=== PATIENT | male | born 1955 | race Caucasian/White ===

== ENCOUNTER 2016-12-13 13:55 | Observation (INO) | payer SELFPAY ==
[~2016-12-13] VITALS: Ht 175.3 cm; Wt 60.0 kg
[2016-12-13 14:00] VITALS: BP_SYST 105; BP_SYST 114; BP_SYST 93; BP_DIAS 54; BP_DIAS 63; BP_DIAS 69; PULSE 56; RESP 20; TEMP 98.3; O2SAT 97
[2016-12-13] MEDS ORDERED: SODIUM CHLOR 0.9% 1000 ML INJ 1,000 ML IV SCH (14:06)
[2016-12-13] MEDS ORDERED: ONDANSETRON HCL 4 MG/2 ML VIAL IV PUSH ONE (14:15)
--- NOTE | 2016-12-13 14:30 | PD ---
HPI Chief Complaint: Syncope/Near-Syncope Time Seen by Provider: 14:23 Travel History International Travel<30 days: No Contact w/Intl Traveler<30days: No Traveled to known affect area: No History of Present Illness HPI 61-year-old male for evaluation of presyncope. Patient came here by ED for evaluation of this. Per patient he was at work today he was bending down and he felt dizzy and nauseous. Per patient he had to sit down and he felt a little bit better but he still felt dizzy. Per patient he went to fix a desk at the office and he been down and he felt that someone was pushing him on the butt and he fell into the ground. Per patient this didn't actually happened and some vomiting x-ray portion. Patient states that he almost lost consciousness but didn't actually. He did hit his head but denies again no consciousness loss. Per patient he did felt that he was having no vision at the time. Patient denies any chest pain or shortness of breath at this time. Per patient he had some left-sided chest discomfort that lasted for about 20 minutes and went away on its own yesterday night. He attributes this to his heartburn. Patient has had testing before for chest pain, resolving negative. Per patient he had no shortness of breath but the pain did radiate to the left arm. He did not take anything for it. He has no allergies to medication. Per patient currently he has no pain but he does have a spinning sensation to his legs. He still states that he feels dizzy and by PCP means that he feels like he is lightheaded but not spinning. PFSH Past Medical History Heart Rhythm Problems: No Cardiac Catheterization: No Cardiovascular Problems: No High Cholesterol: No Congestive Heart Failure: No Diabetes: No Past Surgical History Coronary Artery Bypass Graft: No Social History Alcohol Use: Yes (OCC) Tobacco Use: Yes (1 PPD) Substance Use: No Allergies-Medications (Allergen,Severity, Reaction): Coded Allergies: No Known Allergies (Unverified , 12/13/16) Reported Meds & Prescriptions Reported Meds & Active Scripts Active No Active Prescriptions or Reported Medications Review of Systems General / Constitutional: No: Fever, Chills, Weight Gain, Weight Loss, Other Eyes: Positive: Blurred Vision, No: Diploplia, Photophobia, Drainage, Redness , Foreign Body Sensation, Pain, Tearing, Blind Spots, Visual changes, Blindness , Other HENT: Positive: Vertigo, Lightheadedness, No: Headaches, Sore Throat, Rhinitis , Rhinorrhea, Congestion, Nosebleed, Neck Stiffness, Neck Pain, Masses, Gingival Bleeding, Dental Difficulties, Ear Discharge, Earache, Other Cardiovascular: Positive: Chest Pain or Discomfort, No: Palpitations, Irregular Rhythm, Tachycardia, Diaphoresis, Syncope, Dyspnea on exertion, Varicosities, Edema, Cyanosis, Varicosities, Phlebitis, Claudication, Other Respiratory: No: Cough, Shortness of Breath, Wheezing, Sneezing, Orthopnea, Hemoptysis, Stridor, Night Sweats, Pleuritic Pain, Other Gastrointestinal: No: Nausea, Vomiting, Diarrhea, Abdominal Pain, Hematemesis, Hematochezia, Constipation, Changes in Bowel Habits, Indigestion, Dysphagia, Loss of Appetite, Other Genitourinary: No: Urgency, Frequency, Dysuria, Nocturia, Hematuria, Decreased Urinary Output, Oliguria, Hesitancy, Dribbling, Incontinence, Pelvic Pain, Flank Pain, Dyspareunia, Discharge, Dysmenorrhea, Menorrhagia, Metorrhagia, Vaginal Bleeding, Other Musculoskeletal: No: Myalgias, Arthralgias, Limited ROM, Weakness, Cramping, Edema, Pain, Atrophy, Other Skin: No Rash, No Itching, No Dryness, No Lumps, No Hives, No Change in Pigmentation, No Change in nails, No Alopecia, No Lesions, No Breast Lumps, No Breast Tenderness, No Breast Swelling, No Other Neurologic: Positive: Weakness, Dizziness, Syncope, Paresthesia, No: Focal Abnormalities, Coordination Problem, Tremor, Ataxia, Headache, Change in Mentation, Slurred Speech, Incontinence, Seizures, Sensory Disturbance, Other Psychiatric: No: Anxiety, Depression, Suicidal Ideations, Disorder of Thought, Mood Disorder, Substance Abuse, Homicidal Ideation, Other Endocrine: No: Heat Intolerance, Cold Intolerance, Polyuria, Polydipsia, Other Hematologic/Lymphatic: No: Easy Bruising, Lymph Node Enlargement, Other Physical Exam Narrative GENERAL: SKIN: Warm and dry. HEAD: Atraumatic. Normocephalic. EYES: Pupils equal and round. No scleral icterus. No injection or drainage. ENT: No nasal bleeding or discharge. Mucous membranes pink and moist. Tongue is midline. No uvula deviation. TMs are clear with no sign of infection or perforation bilaterally. NECK: Trachea midline. No JVD. CARDIOVASCULAR: Regular rate and rhythm. No murmurs, S3, S4. RESPIRATORY: No accessory muscle use. Clear to auscultation. Breath sounds equal bilaterally. GASTROINTESTINAL: Abdomen soft, non-tender, nondistended. Hepatic and splenic margins not palpable. MUSCULOSKELETAL: Extremities without clubbing, cyanosis, or edema. No obvious deformities. Full range of motion of the upper and lower extremities with no pain. 2+ pulses bilaterally. NEUROLOGICAL: Awake and alert. No obvious cranial nerve deficits. Motor grossly within normal limits. Five out of 5 muscle strength in the arms and legs. Normal speech. PSYCHIATRIC: Appropriate mood and affect; insight and judgment normal. Data Data Last Documented VS Vital Signs Date Time Temp Pulse Resp B/P Pulse Ox O2 Delivery O2 Flow Rate FiO2 12/13/16 14:00 97 Room Air 12/13/16 14:00 98.3 56 20 114/63 Orders Electrocardiogram (12/13/16 ) Complete Blood Count With Diff (12/13/16 14:06) Basic Metabolic Panel (Bmp) (12/13/16 14:06) Ckmb (Isoenzyme) Profile (12/13/16 14:06) Troponin I (12/13/16 14:06) Prothrombin Time / Inr (Pt) (12/13/16 14:06) Act Partial Throm Time (Ptt) (12/13/16 14:06) Magnesium (Mg) (12/13/16 14:06) Thyroid Stimulating Hormone (12/13/16 14:06) Chest, Single Ap (12/13/16 14:06) Ct Brain W/O Iv Contrast(Rout) (12/13/16 14:06) Iv Access Insert/Monitor (12/13/16 14:06) Ecg Monitoring (12/13/16 14:06) Oximetry (12/13/16 14:06) Orthostatic Vital Signs (12/13/16 14:06) Sodium Chlor 0.9% 1000 Ml Inj (Ns 1000 M (12/13/16 14:06) Ondansetron Inj (Zofran Inj) (12/13/16 14:15) Meclizine (Antivert) (12/13/16 15:30) Admit Order (Ed Use Only) (12/13/16 15:53) Labs Laboratory Tests Test 12/13/16 14:10 White Blood Count 5.0 TH/MM3 Red Blood Count 4.43 MIL/MM3 Hemoglobin 14.4 GM/DL Hematocrit 42.0 % Mean Corpuscular Volume 94.7 FL Mean Corpuscular Hemoglobin 32.5 PG Mean Corpuscular Hemoglobin 34.3 % Concent Red Cell Distribution Width 12.4 % Platelet Count 188 TH/MM3 Mean Platelet Volume 8.9 FL Neutrophils (%) (Auto) 50.4 % Lymphocytes (%) (Auto) 32.6 % Monocytes (%) (Auto) 12.0 % Eosinophils (%) (Auto) 3.9 % Basophils (%) (Auto) 1.1 % Neutrophils # (Auto) 2.5 TH/MM3 Lymphocytes # (Auto) 1.6 TH/MM3 Monocytes # (Auto) 0.6 TH/MM3 Eosinophils # (Auto) 0.2 TH/MM3 Basophils # (Auto) 0.1 TH/MM3 CBC Comment DIFF FINAL Differential Comment Prothrombin Time 11.4 SEC Prothromb Time International 1.0 RATIO Ratio Activated Partial 27.1 SEC Thromboplast Time Sodium Level 138 MEQ/L Potassium Level 4.5 MEQ/L Chloride Level 106 MEQ/L Carbon Dioxide Level 26.2 MEQ/L Anion Gap 6 MEQ/L Blood Urea Nitrogen 15 MG/DL Creatinine 1.00 MG/DL Estimat Glomerular Filtration 76 ML/MIN Rate Random Glucose 88 MG/DL Calcium Level 9.3 MG/DL Magnesium Level 2.3 MG/DL Total Creatine Kinase 62 U/L Troponin I LESS THAN 0.02 NG/ML Thyroid Stimulating Hormone 0.883 uIU/ML [address] [place] [address] Medical Decision Making Medical Screen Exam Complete: Yes Emergency Medical Condition: Yes Medical Record Reviewed: Yes Interpretation(s) Last Impressions Head CT 12/13/16 1406 Signed Impressions: Service Date/Time: Tuesday, December 13, 2016 14:34 - CONCLUSION: Normal examination. Taqueria Colon MD CBC & BMP Diagram 12/13/16 14:10 Chest x-ray negative. Troponin and CK be negative. EKG show sinus rhythm with no sign of acute ischemia or arrhythmia. Differential Diagnosis Vertigo versus lightheadedness versus presents syncope versus syncope versus chest pain versus ACS versus CVA versus TIA Narrative Course 61-year-old male that presents to the ED for evaluation of presyncope. Patient was properly examined and was found to have signs and symptoms consistent appears to be presyncope. Patient also complained of some chest discomfort yesterday. Patient is an avid smoker. At this time I do recommend labs and imaging workup for CVA as well as ACS. He is agreeable with this. Patient was given IV fluids at this time. Labs and imaging showed no sign of acute disease. Patient still feels dizzy. Patient is symptomatic when he stands up. Patient doesn't have orthostatic hypotension but he was found to be somewhat hypotensive initially. Because of patient's age and symptoms to do recommend admission for further workup of the dizziness. My attending Dr. Jeronimo agrees with plan. Patient agrees with plan. WINSOME was paged and Dr Traore agrees to admission. Diagnosis Primary Impression: Pre-syncope Additional Impression: Tobacco abuse Admitting Information Admitting Physician Requests: Observation Scripts No Active Prescriptions or Reported Meds Gume Fulton Dec 13, 2016 14:30
[2016-12-13 14:35] LABS: AUTOMATED NEUTROPHIL # 2.5 TH/MM3 (1.8-7.7); BASOPHIL # 0.1 TH/MM3 (0-0.2); BASOPHIL % 1.1 % (0.0-2.0); EOSINOPHIL # 0.2 TH/MM3 (0-0.4); EOSINOPHIL % 3.9 % (0.0-4.0); HEMO FLAGS DIFF FINAL; LYMPH % 32.6 % (9.0-44.0); LYMPHOCYTE # 1.6 TH/MM3 (1.0-4.8); MEAN CELL VOLUME 94.7 FL (80.0-100.0); MEAN CORPUSCULAR HEMOGLOBIN 32.5 PG (27.0-34.0); MEAN CORPUSCULAR HGB CONC 34.3 % (32.0-36.0); NEUT % 50.4 % (16.0-70.0); PLATELET COUNT 188 TH/MM3 (150-450); RED BLOOD COUNT 4.43 MIL/MM3 (4.50-5.90); RED CELL DISTRIBUTION WIDTH 12.4 % (11.6-17.2)
--- NOTE | 2016-12-13 14:50 | RADRPT ---
EXAM DATE/TIME: 12/13/2016 14:34 [facility] COMPARISON: No previous studies available for comparison. INDICATIONS : Syncope. RADIATION DOSE: 56.35 CTDIvol (mGy) MEDICAL HISTORY : Spontaneous pneumothorax. SURGICAL HISTORY : None. ENCOUNTER: Initial ACUITY: 1 day PAIN SCALE: 0/10 LOCATION: cranial TECHNIQUE: Multiple contiguous axial images were obtained of the head. Using automated exposure control and adj ustment of the mA and/or kV according to patient size, radiation dose was kept as low as reasonably a chievable to obtain optimal diagnostic quality images. FINDINGS: CEREBRUM: The ventricles are normal for age. No evidence of midline shift, mass lesion, hemorrhage or acute in farction. No extra-axial fluid collections are seen. POSTERIOR FOSSA: The cerebellum and brainstem are intact. The 4th ventricle is midline. The cerebellopontine angle i s unremarkable. EXTRACRANIAL: The visualized portion of the orbits is intact. SKULL: The calvaria is intact. No evidence of skull fracture. CONCLUSION: Normal examination. Taqueria Colon MD on December 13, 2016 at 14:48 Board Certified Radiologist. This report was verified electronically.
[2016-12-13 14:52] LABS: ANION GAP 6 MEQ/L (5-15); BICARBONATE 26.2 MEQ/L (21.0-32.0); BLOOD UREA NITROGEN 15 MG/DL (7-18); CHLORIDE 106 MEQ/L (98-107); GLOMERULAR FILTRATION RATE 76 ML/MIN (>89); MAGNESIUM 2.3 MG/DL (1.5-2.5); POTASSIUM 4.5 MEQ/L (3.5-5.1); SODIUM (NA) 138 MEQ/L (136-145)
[2016-12-13 14:54] LABS: APTT (PATIENT) 27.1 SEC (24.3-30.1); PROTHROMBIN TIME - PATIENT 11.4 SEC (9.8-11.6)
[2016-12-13 15:08] LABS: CREATINE KINASE 62 U/L (39-308)
--- NOTE | 2016-12-13 15:14 | RADRPT ---
EXAM DATE/TIME: 12/13/2016 14:37 [facility] COMPARISON: CHEST SINGLE AP, May 03, 2015, 18:52. INDICATIONS : Vertigo, syncope, chest discomfort, smoker MEDICAL HISTORY : None. SURGICAL HISTORY : None. ENCOUNTER: Initial ACUITY: 1 day PAIN SCORE: 1/10 LOCATION: Bilateral chest FINDINGS: Granulomas present in the right upper lobe. Nipple shadows are seen in both bases bila terally. Lungs are clear. Heart and pulmonary vascularity are normal. Portions of the bony skeleton visualize d are unremarkable. CONCLUSION: Negative chest for acute disease. Michael Bronson MD FACR on December 13, 2016 at 15:05 Board Certified Radiologist. This report was verified electronically.
[2016-12-13] MEDS ORDERED: MECLIZINE HCL 25 MG TAB PO ONE (15:30)
[2016-12-13 15:56] VITALS: BP 120/63; PULSE 66; RESP 20; O2SAT 97
--- NOTE | 2016-12-13 16:11 | HHI.HP ---
[facility] No Primary Care Physician Admission Diagnosis presyncope Diagnoses: (1) Pre-syncope Diagnosis: Principal Chief Complaint: ' I almost passed out '. Travel History International Travel<30 Days: No Contact w/Intl Traveler <30 Da: No Traveled to Known Affected Are: No History of Present Illness patient is a 61 y/o male with no significant past medical history who presented to ER with presyncope. he says that earlier today, when he was at work, when he bent over he suddenly felt dizzy along with some blurred vision. he says that it initially got better but again it felt that ' something was pushing him from the back ' and then he fell on the ground. he didn't pass out and there's no history of head trauma. he denies any chest pain or sob prior to the incident although he had some nausea and he vomited once on his way to ER. he doesn't recall any similar episodes in the past. Review of Systems Constitutional: COMPLAINS OF: Dizziness, DENIES: Fever, Weight loss, Chills, Night Sweats Eyes: DENIES: Blurred vision, Diplopia, Vision loss, Double Vision Ears, nose, mouth, throat: DENIES: Tinnitus, Vertigo, Throat pain, Epistaxis Respiratory: DENIES: Apneas, Cough, Snoring, Wheezing, Hemoptysis, Sputum production, Shortness of breath Cardiovascular: DENIES: Chest pain, Palpitations, Syncope, Dyspnea on Exertion , PND, Lower Extremity Edema, Orthopnea, Claudication Gastrointestinal: COMPLAINS OF: Nausea, Vomiting, DENIES: Abdominal pain, Black stools, Bloody stools, Constipation, Diarrhea, Difficulty Swallowing, Anorexia Genitourinary: DENIES: Urinary frequency, Urgency, Hematuria, Dysuria Musculoskeletal: DENIES: Joint pain, Muscle aches, Stiffness, Joint Swelling Integumentary: DENIES: Rash Neurologic: DENIES: Abnormal gait, Headache, Localized weakness, Paresthesias, Seizures, Speech Problems, Tremor, Poor Balance Psychiatric: DENIES: Anxiety, Confusion, Mood changes, Depression, Hallucinations, Agitation, Suicidal Ideation, Homicidal Ideation, Delusions Past Family Social History Past Medical History not significant. Past Surgical History none reported. Reported Medications none. Allergies: Coded Allergies: No Known Allergies (Unverified , 12/13/16) Active Ordered Medications Current Medications Sodium Chloride (NS 1000 ml Inj) 1,000 ml @ 1,000 mls/hr Q1H IV Last administered on 12/13/16 14:30; Start 12/13/16 at 14:06; Stop 12/13/16 at 15:05 ; Status DC Ondansetron HCl (Zofran Inj) 4 mg ONCE ONCE IV PUSH Last administered on 14:30; Start 12/13/16 at 14:15; Stop 12/13/16 at 14:16; Status DC Meclizine HCl (Antivert) 25 mg ONCE ONCE PO Last administered on 12/13/16 15: 56; Start 12/13/16 at 15:30; Stop 12/13/16 at 15:31; Status DC Family History lung cancer in father. Social History smokes a pack a day- drinks occasionally. Physical Exam Vital Signs Vital Signs Date Time Temp Pulse Resp B/P Pulse Ox O2 Delivery O2 Flow Rate FiO2 12/13/16 15:56 66 20 120/63 97 Room Air 12/13/16 14:00 97 Room Air 12/13/16 14:00 98.3 56 20 114/63 97 12/13/16 14:00 49 20 93/54 56 20 114/63 62 20 105/69 Physical Exam GENERAL: This is a well-nourished, well-developed patient, in no apparent distress. SKIN: No rashes, ecchymoses or lesions. Cool and dry. HEAD: Atraumatic. Normocephalic. No temporal or scalp tenderness. EYES: Pupils equal round and reactive. Extraocular motions intact. No scleral icterus. No injection or drainage. ENT: Nose without bleeding, purulent drainage or septal hematoma. Throat without erythema, tonsillar hypertrophy or exudate. Uvula midline. Airway patent. NECK: Trachea midline. No JVD or lymphadenopathy. Supple, nontender, no meningeal signs. CARDIOVASCULAR: Regular rate and rhythm without murmurs, gallops, or rubs. RESPIRATORY: Clear to auscultation. Breath sounds equal bilaterally. No wheezes , rales, or rhonchi. GASTROINTESTINAL: Abdomen soft, non-tender, nondistended. No hepato-splenomegaly , or palpable masses. No guarding. MUSCULOSKELETAL: Extremities without clubbing, cyanosis, or edema. No joint tenderness, effusion, or edema noted. No calf tenderness. Negative Homans sign bilaterally. NEUROLOGICAL: Awake and alert. Cranial nerves II through XII intact. Motor and sensory grossly within normal limits. Five out of 5 muscle strength in all muscle groups. Normal speech. Laboratory Laboratory Tests Test 12/13/16 14:10 White Blood Count 5.0 Red Blood Count 4.43 Hemoglobin 14.4 Hematocrit 42.0 Mean Corpuscular Volume 94.7 Mean Corpuscular Hemoglobin 32.5 Mean Corpuscular Hemoglobin 34.3 Concent Red Cell Distribution Width 12.4 Platelet Count 188 Mean Platelet Volume 8.9 Neutrophils (%) (Auto) 50.4 Lymphocytes (%) (Auto) 32.6 Monocytes (%) (Auto) 12.0 Eosinophils (%) (Auto) 3.9 Basophils (%) (Auto) 1.1 Neutrophils # (Auto) 2.5 Lymphocytes # (Auto) 1.6 Monocytes # (Auto) 0.6 Eosinophils # (Auto) 0.2 Basophils # (Auto) 0.1 CBC Comment DIFF FINAL Differential Comment Prothrombin Time 11.4 Prothromb Time International 1.0 Ratio Activated Partial 27.1 Thromboplast Time Sodium Level 138 Potassium Level 4.5 Chloride Level 106 Carbon Dioxide Level 26.2 Anion Gap 6 Blood Urea Nitrogen 15 Creatinine 1.00 Estimat Glomerular Filtration 76 Rate Random Glucose 88 Calcium Level 9.3 Magnesium Level 2.3 Total Creatine Kinase 62 Troponin I LESS THAN 0.02 Thyroid Stimulating Hormone 0.883 3rd Gen Result Diagram: 12/13/16 1410 12/13/16 1410 Imaging Last Impressions Head CT 12/13/16 1406 Signed Impressions: Service Date/Time: Tuesday, December 13, 2016 14:34 - CONCLUSION: Normal examination. Taqueria Colon MD EKG; NSR Assessment and Plan Assessment and Plan A/P - presyncope CT head negative- negative for orthostatic hypotension continue with neuro checks- check carotid doppler and echo. meclizine/ antiemetics as needed. Discussed Condition With ER and the patient. Elicia Vega MD Dec 13, 2016 16:11
[2016-12-13] MEDS ORDERED: SODIUM CHLOR 0.9% 1000 ML INJ 1,000 ML IV ONE (16:15)
[2016-12-13] MEDS ORDERED: ONDANSETRON HCL 4 MG/2 ML VIAL IV PUSH PRN (16:15)
[2016-12-13] MEDS ORDERED: ACETAMINOPHEN 325 MG TAB PO PRN (16:15)
[2016-12-13] MEDS ORDERED: MECLIZINE HCL 25 MG TAB PO PRN (16:15)
[2016-12-13 17:16] VITALS: BP 112/67; PULSE 57; RESP 18; TEMP 97.5; O2SAT 97
--- NOTE | 2016-12-13 21:43 | RADRPT ---
EXAM DATE/TIME: 12/13/2016 20:50 [facility] COMPARISON: No previous studies available for comparison. INDICATIONS : Syncope. MEDICAL HISTORY : Swine flu. Spontaneous pneumothorax. Acid reflux. Post traumatic stress disorder. SURGICAL HISTORY : Hydrocele removal left scrotum. ENCOUNTER: Initial ACUITY: 1 day PAIN SCORE: 0/10 LOCATION: Bilateral neck PEAK SYSTOLIC VELOCITIES (cm/sec): ICA/CCA RATIO: Right: 0.9 Left: 1.2 ICA: Right: 79 Left: 81 CCA: Right: 89 Left: 70 ECA: Right: 101 Left: 90 VERTEBRAL: Right: 48 antegrade Left: 51 antegrade Elevated flow velocities and ICA/CCA ratios have been found to correlate with increased degrees of vessel stenosis, calculated as percentage of diameter relative to a normal segment of distal ICA/CCA FINDINGS: RIGHT CAROTID: Trace plaque of the bulb and proximal internal carotid artery. LEFT CAROTID: Trace plaque of the bulb and proximal internal carotid artery. VERTEBRAL ARTERIES: Antegrade flow is seen in both vertebral arteries. MISCELLANEOUS: None. CONCLUSION: Minimal bilateral carotid atherosclerosis. No hemodynamically significant narrowing. Walker Morley MD on December 13, 2016 at 21:40 Board Certified Radiologist. This report was verified electronically.
[2016-12-13 21:46] VITALS: BP 93/54; PULSE 58; RESP 18; TEMP 98.5; O2SAT 98
[2016-12-14 00:39] VITALS: BP 114/67; PULSE 55; RESP 18; TEMP 98; O2SAT 97
[2016-12-14 03:34] VITALS: BP 107/57; PULSE 64; RESP 20; TEMP 98.8; O2SAT 99
[2016-12-14 07:34] VITALS: BP 96/53; PULSE 60; RESP 14; TEMP 98; O2SAT 97
[2016-12-14 11:25] VITALS: BP 104/61; PULSE 62; RESP 14; TEMP 97.9; O2SAT 97
--- NOTE | 2016-12-14 12:45 | HHI.PR ---
Subjective Remarks f/u; vertigo still with some dizziness although is better than yesterday. says that it's worse with moving his head to the right side. no other complaints. Objective Vitals Vital Signs Date Time Temp Pulse Resp B/P Pulse Ox O2 Delivery O2 Flow Rate FiO2 12/14/16 11:25 97.9 62 14 104/61 97 12/14/16 07:34 98.0 60 14 96/53 97 12/14/16 03:34 98.8 64 20 107/57 99 12/14/16 00:39 98.0 55 18 114/67 97 12/13/16 21:46 98.5 58 18 93/54 98 12/13/16 17:16 97.5 57 18 112/67 97 12/13/16 15:56 66 20 120/63 97 Room Air 12/13/16 14:00 97 Room Air 12/13/16 14:00 98.3 56 20 114/63 97 12/13/16 14:00 49 20 93/54 56 20 114/63 62 20 105/69 Result Diagram: 12/13/16 1410 12/13/16 1410 Imaging Last Impressions Head CT 12/13/16 1406 Signed Impressions: Service Date/Time: Tuesday, December 13, 2016 14:34 - CONCLUSION: Normal examination. Taqueria Colon MD Chest X-Ray 12/13/16 1406 Signed Impressions: Service Date/Time: Tuesday, December 13, 2016 14:37 - CONCLUSION: Negative chest for acute disease. Michael Bronson MD FACR Carotid Artery Ultrasound 12/13/16 0000 Signed Impressions: Service Date/Time: Tuesday, December 13, 2016 20:50 - CONCLUSION: Minimal bilateral carotid atherosclerosis. No hemodynamically significant narrowing. Walker Morley MD Objective Remarks GENERAL: This is a well-nourished, well-developed patient, in no apparent distress. CARDIOVASCULAR: Regular rate and regular rhythm without murmurs, gallops, or rubs. RESPIRATORY: Clear to auscultation. Breath sounds equal bilaterally. No wheezes , rales, or rhonchi. GASTROINTESTINAL: Abdomen soft, non-tender, nondistended. Normal, active bowel sounds MUSCULOSKELETAL: Extremities without clubbing, cyanosis, or edema. NEURO: Alert & Oriented x4 to person, place, time, situation. Moves all ext x4 Medications and IVs Current Medications Sodium Chloride (NS 1000 ml Inj) 1,000 ml @ 1,000 mls/hr Q1H IV Last administered on 12/13/16 14:30; Start 12/13/16 at 14:06; Stop 12/13/16 at 15:05 ; Status DC Ondansetron HCl (Zofran Inj) 4 mg ONCE ONCE IV PUSH Last administered on 14:30; Start 12/13/16 at 14:15; Stop 12/13/16 at 14:16; Status DC Meclizine HCl 25 mg 25 mg ONCE ONCE PO Last administered on 12/13/16 15:56; Start 12/13/16 at 15:30; Stop 12/13/16 at 15:31; Status DC Sodium Chloride (NS 1000 ml Inj) 1,000 ml @ 75 mls/hr [id number] ONCE IV Last administered on 12/13/16 16:40; Start 12/13/16 at 16:15; Stop 12/14/16 at 05:34 ; Status DC Ondansetron HCl (Zofran Inj) 4 mg Q8HR PRN IV PUSH NAUSEA; Start 12/13/16 at 16 :15 Acetaminophen (Tylenol) 650 mg Q4H PRN PO FEVER/ PAIN/ HEADACHE; Start at 16:15 Meclizine HCl (Antivert) 25 mg Q8HR PRN PO VERTIGO Last administered on 08:07; Start 12/13/16 at 16:15 A/P Assessment and Plan A/P - presyncope/likely due to benign positional vertigo CT head and carotid doppler negative- negative for orthostatic hypotension meclizine/ antiemetics as needed. consult PT. Discharge Planning dc home later today or in am if dizziness is better and doing ok with PT. Elicia Vega MD Dec 14, 2016 12:45 Elicia Vega MD Dec 14, 2016 12:45
[2016-12-14] MEDS ORDERED: MECL-62 PO (12:46)
--- NOTE | 2016-12-14 13:57 | HHI.DCPOC ---
Discharge Care Plan Diagnosis: (1) Pre-syncope Your Health Problems Are: Difficulty with ADL Additional Problems dizziness. Goals to Promote Your Health * To prevent worsening of your condition and complications * To maintain your health at the optimal level Directions to Meet Your Goals Take your medications as prescribed Follow your dietary instruction Follow activity as directed Keep your appointments as scheduled Take your immunizations and boosters as scheduled If your symptoms worsen call your PCP, if no PCP go to Urgent Care Center or Emergency Room Smoking is Dangerous to Your Health. Avoid second hand smoke Call the 24-hour hour crisis hotline for domestic abuse at Elicia Vega MD Dec 14, 2016 13:57
--- NOTE | 2016-12-14 13:58 | HHI.DS ---
Discharge Summary Admission Date Dec 13, 2016 at 15:54 Discharge Date: Dec 14, 2016 Admitting Diagnosis presyncope (1) Pre-syncope ICD Code: R55 Diagnosis: Principal Procedures none Brief History - From Admission patient is a 61 y/o male with no significant past medical history who presented to ER with presyncope. he says that earlier today, when he was at work, when he bent over he suddenly felt dizzy along with some blurred vision. he says that it initially got better but again it felt that ' something was pushing him from the back ' and then he fell on the ground. he didn't pass out and there's no history of head trauma. he denies any chest pain or sob prior to the incident although he had some nausea and he vomited once on his way to ER. he doesn't recall any similar episodes in the past. CBC/BMP: 12/13/16 1410 12/13/16 1410 Significant Findings Laboratory Tests Test 12/13/16 14:10 Red Blood Count 4.43 MIL/MM3 (4.50-5.90) Monocytes (%) (Auto) 12.0 % (0.0-8.0) Estimat Glomerular Filtration 76 ML/MIN (>89) Rate Troponin I LESS THAN 0.02 NG/ML (0.02-0.05) Imaging Last Impressions Head CT 12/13/16 1406 Signed Impressions: Service Date/Time: Tuesday, December 13, 2016 14:34 - CONCLUSION: Normal examination. Taqueria Colon MD Chest X-Ray 12/13/16 1406 Signed Impressions: Service Date/Time: Tuesday, December 13, 2016 14:37 - CONCLUSION: Negative chest for acute disease. Michael Bronson MD FACR Carotid Artery Ultrasound 12/13/16 0000 Signed Impressions: Service Date/Time: Tuesday, December 13, 2016 20:50 - CONCLUSION: Minimal bilateral carotid atherosclerosis. No hemodynamically significant narrowing. Walker Morley MD PE at Discharge GENERAL: This is a well-nourished, well-developed patient, in no apparent distress. CARDIOVASCULAR: Regular rate and regular rhythm without murmurs, gallops, or rubs. RESPIRATORY: Clear to auscultation. Breath sounds equal bilaterally. No wheezes , rales, or rhonchi. GASTROINTESTINAL: Abdomen soft, non-tender, nondistended. Normal, active bowel sounds MUSCULOSKELETAL: Extremities without clubbing, cyanosis, or edema. NEURO: Alert & Oriented x4 to person, place, time, situation. Moves all ext x4 Hospital Course - presyncope/likely due to benign positional vertigo CT head and carotid doppler negative- negative for orthostatic hypotension meclizine/ antiemetics as needed. consulted PT. Pt Condition on Discharge: Good Discharge Disposition: Discharge Home Discharge Time: <= 30 minutes Discharge Instructions DIET: Follow Instructions for: As Tolerated, No Restrictions Activities you can perform: Regular-No Restrictions Activities to Avoid: Driving Follow up Referrals: PCP Follow-up New Medications: Meclizine (Meclizine) 25 Mg Tab 25 MG PO Q8HR PRN VERTIGO #15 Ref 0 Elicia Esparza MD Dec 14, 2016 13:58
[2016-12-14 16:09] VITALS: BP 105/61; PULSE 60; RESP 16; TEMP 97.8; O2SAT 97
--- NOTE | 2016-12-15 07:03 | EKG ---
Date Performed: 12/13/2016 Time Performed: 14:08:34 PTAGE: 61 years EKG: Sinus rhythm Repolarization abnormality BORDERLINE ECG PREVIOUS TRACING : 05/03/2015 18.31 DOCTOR: Roberto Carlos Rosen Interpretating Date/Time 12/15/2016 07:02:03
== END 2016-12-14 18:47 | disposition home or self-care (01) ==
LOC: NEPC 13:55 → NEDH 15:54 → NEPHCDU 17:07
PROVIDERS: ADMIT Internal Medicine; ATTEND Internal Medicine
DX: R55 Syncope and collapse (principal); R42 Dizziness and giddiness; R11.2 Nausea with vomiting, unspecified; R07.89 Other chest pain; R12 Heartburn; M79.602 Pain in left arm; F17.210 Nicotine dependence, cigarettes, uncomplicated; I95.9 Hypotension, unspecified; I65.23 Occlusion and stenosis of bilateral carotid arteries; R94.31 Abnormal electrocardiogram [ECG] [EKG]; H53.8 Other visual disturbances
CPT/HCPCS: 70450; 71010; 80048; 82550; 83735; 84443; 84484; 85025; 85610; 85730; 93005; 93880; 96361; 96374; 97162; 99285; G0378; G8987; G8988; J2405; J7030